=== PATIENT | male | born 1950 ===

== ENCOUNTER 2022-07-14 04:32 | Day surgery (SDC) | payer OTHER ==
[2022-07-13 12:35] VITALS: BMI 24.2
[2022-07-14] MEDS ORDERED: PROPOFOL 20 ML ONE (13:27)
[2022-07-14] MEDS ORDERED: oxyCODONE HCL 5 MG TABLET PO PRN (13:39)
[2022-07-14] MEDS ORDERED: ONDANSETRON 4 MG/2 ML VIAL IVPUSH PRN (13:39)
[2022-07-14] MEDS ORDERED: ACETAMINOPHEN 325 MG TABLET (FP) PO PRN (13:39)
[2022-07-14] MEDS ORDERED: LACTATED RINGERS SOLUTION 1,000 ML IV SCH (13:45)
[2022-07-14] MEDS ORDERED: DEXAMETHASONE SOD PHOSPHATE 4 MG/1 ML VIAL ONE (14:06)
[2022-07-14] MEDS ORDERED: ceFAZolin SODIUM 1 GM VIAL ONE (14:06)
[2022-07-14] MEDS ORDERED: ceFAZolin SODIUM 1 GM VIAL IVPB ONE (14:08)
[2022-07-14] MEDS ORDERED: BACITRACIN 15 GM TUBE TOPICAL OINTMENT ONE (14:47)
[2022-07-14 16:50] VITALS: RESP 18; TEMP 97.8
[2022-07-14] MEDS ORDERED: oxyCODONE HCL 5 MG TABLET ONE (17:32)
[2022-07-14 18:07] VITALS: BP 170/77; PULSE 79
== END 2022-07-14 18:00 | disposition home or self-care (01) ==
LOC: JASU-SURG 04:32
PROVIDERS: ATTEND Urology
PROC: 0V503ZZ Destruction of Prostate, Percutaneous Approach (ICD-10-PCS; principal; 2022-07-14 13:30)
DX: C61 Malignant neoplasm of prostate (principal)
CPT/HCPCS: 55873; C2618; 94760